=== PATIENT | female | born 1995 | race African-American/Black ===

== ENCOUNTER 2024-07-07 13:10 | Emergency (ER) | payer OTHER ==
[~2024-07-07] VITALS: Ht 149.9 cm; Wt 58.5 kg
[2024-07-07 13:14] VITALS: O2SAT 100
[2024-07-07] MEDS: IBUPROFEN 600MG TABLET PO ONE (14:18)
[2024-07-07 14:22] LABS: BG BASE EXCESS -1.6 mmol/L (-2.0-3.0); BG CARBOXYHEMOGLOBIN 1.6 % (0.5-1.5); BG DEOXYHEMOGLOBIN 2.6 % (0.0-5.0); BG FRACTION INSPIRED OXYGEN 21; BG HCO3 ACT 22.5 mmol/L (21.0-28.0); BG METHEMOGLOBIN 0.1 % (0.5-1.5); BG OXYGEN SATURATION 97.4 % (94.0-98.0); BG OXYHEMOGLOBIN 95.7 % (94.0-98.0); BG PH 7.413 (7.350-7.450); BG SAMPLE SITE RIGHT RADIAL; BG VENT MODE ROOM AIR
[2024-07-07 14:46] VITALS: BP 113/72; PULSE 66; RESP 16; TEMP 36.8; O2SAT 100
== END 2024-07-07 14:13 | disposition home or self-care (01) ==
LOC: ER 13:10
DX: R51.9 Headache, unspecified (principal); Z57.5 Occupational exposure to toxic agents in other industries
CPT/HCPCS: 36600; 82375; 82805; 99283